=== PATIENT | female | born 1945 | race Caucasian/White ===

== ENCOUNTER 2016-12-04 22:07 | Emergency (ER) | payer MEDICARE, OTHER ==
[~2016-12-04] VITALS: Ht 167.6 cm; Wt 82.7 kg
[~2016-12-04 22:07] MED LIST: LIT300 PO; LORA-302 PO; RISP2TAB21 PO; TRAZ-115 PO
[2016-12-04 22:10] VITALS: BP 163/88; PULSE 70; RESP 15; O2SAT 98
--- NOTE | 2016-12-04 23:20 | ED.REPORT ---
HPI-General Illness Date of Service December 04, 2016 ED Provider: Wai Sadler MD A 71 year old female with a history of bipolar disorder, hypertension, chronic diarrhea due to medications and lithium toxicity presents to the ED complaining of a headache. The pt has been experiencing this headache for three days, in addition to nausea, decreased water intake and inability to sleep for the last three nights. She is concerned that she is dehydrated and may have lithium toxicity. The pt has been taking her medications regularly. Nursing Notes Stated Complaint: DEHYDRATION Chief Complaint: Headache Nursing Notes Reviewed: Yes Allergies: Coded Allergies: Penicillins (Verified Allergy, Severe, 10/03/15) nitrofurantoin (Verified Allergy, Severe, 10/03/15) tetracycline (Verified Allergy, Severe, 10/03/15) hydroxyzine (Verified Allergy, Intermediate, make me manic, 10/03/15) olanzapine (Verified Allergy, Unknown, 10/03/15) quetiapine (Verified Adverse Reaction, Unknown, seizures, 10/03/15) Scheduled [place] Carbonate ([place] Carbonate) 300 Mg Cap 300 MG PO BID Lorazepam (Ativan) 0.5 Mg Tablet 0.5 MG PO HS Risperidone (Risperdal) 2 Mg Tablet 1 MG PO BID Trazodone (Trazodone) 50 Mg Tablet 25 MG PO HS General Time Seen by MD: 22:16 Chief Complaint Headache Hx Obtained From: Patient Arrived By: Walk-in Sudden in Onset?: No Onset Occurred: 3 days ago Symptom Duration: Since onset Recent Healthcare: No recent hospitalization, Recent doctor visit Similar Sx Previous: Yes Past Medical History Past Medical History Notes: PCP: Dr. Rosario Past Medical History Bipolar 1 disorder, Manic with psychosis. Elevated body mass index Left bundle branch block. Possible seizure disorder. Chronic diarrhea due to medications. [place] toxicity. Reports: Asthma, Hyperlipidemia, Hypertension Past Surgical History ankle surgery Smoking History Never Smoker Social History Alcohol Use: "Social" Drug Use: Denies drug use Other Social History: Frequent ED visitor, , Local resident Ambulatory Status Independent Review of Systems decreased water intake insomnia Full Review of Systems Respiratory: Denies: Non-productive cough, Shortness of breath GI: Reports: Diarrhea (chronic), Nausea Skin: Denies Rash Neurologic: Reports: Headache Complete sys rev & neg: except as marked. Physical Exam Vital Signs Vital Signs Date Time Temp Pulse Resp B/P Pulse Ox O2 Delivery O2 Flow Rate FiO2 12/04/16 22:10 36.2 70 15 163/88 98 Room Air Initial VS: Reviewed, Vital signs normal General/Constitutional: Awake, Alert appears slightly dehydrated Head / Eyes: Atraumatic, Normocephalic, PERRL, EOMI ENT: Atraumatic, Airway patent Neck: Atraumatic, Supple, Full range of motion Respiratory / Chest: Atraumatic, Breath sounds NL, Breath sounds = bilat, No respiratory distress Cardiovascular: Heart rate NL, Regular rhythm, Heart sounds NL Abdomen: Atraumatic, Soft, Non-tender Back: Atraumatic, Full range of motion Upper Extremities Upper Extremity / MS: Atraumatic, Full range of motion Lower Extremity / Pelvis / MS: Atraumatic, Full range of motion Skin: Atraumatic, Color NL, No rash, Warm, Dry Neurologic: Oriented X3, Speech NL, No motor deficits, No sensory deficits Psychiatric: Affect NL, Mood NL Interpretation & Diagnostics Lab Results Interpretation Result Diagram: 12/04/16 2345 12/04/16 2345 Test 12/04/16 23:45 12/04/16 23:50 12/05/16 00:50 White Blood Count 9.8th/mm3 (3.8-10.1) Red Blood Count 3.83mil/mm3 (3.90-5.20) Hemoglobin 11.7g/dL (12.0-15.6) Hematocrit 36.7% (35.0-46.0) Mean Corpuscular Volume 95.8fL (81-100) Mean Corpuscular Hemoglobin 30.5pg (27.0-35.0) Mean Corpuscular Hemoglobin Concent 31.9% (32.0-37.0) Red Cell Distribution Width 12.9% (12.3-15.4) Platelet Count 275bil/L (150-400) Neutrophils (%) (Auto) 74.2% (40-74) Lymphocytes (%) (Auto) 17.0% (14-46) Monocytes (%) (Auto) 6.8% (4-12) Eosinophils (%) (Auto) 1.2% (0-5) Basophils (%) (Auto) 0.6% (0-3) Sodium Level 137mEq/L (134-144) Potassium Level 4.7mEq/L (3.5-5.2) Chloride Level 100mEq/L (97-108) Carbon Dioxide Level 22mmol/L (18-29) Blood Urea Nitrogen 21mg/dL (8-27) Creatinine 0.81mg/dL (0.57-1.00) Estimat Glomerular Filtration Rate 100mL/min (>59) Glucose Level 105mg/dL (60-99) Calcium Level 9.2mg/dL (8.5-10.1) Magnesium Level 1.9mg/dL (1.6-2.6) Total Bilirubin 0.4mg/dL (0.0-1.2) Aspartate Amino Transf (AST/SGOT) 15U/L (0-50) Alanine Aminotransferase (ALT/SGPT) 8U/L (0-32) Alkaline Phosphatase 59U/L (25-165) Total Protein 6.3g/dL (6.4-8.4) Albumin 4.1g/dL (3.4-5.0) Lipase 20U/L (13-60) Hold Love Top Tube Received (Received) [place] Level 0.9mEq/L (0.5-1.5) Hold Urine Received (Received) Urine Color Straw (YELLOW) Urine Appearance Clear (CLEAR,HAZY) Urine pH 7.0 (5.0-8.0) Urine Specific [place] 1.010 (1.003-1.035) Urine Protein Negativemg/dL (NEG,TRACE) Urine Glucose (UA) Negativemg/dL (NEGATIVE) Urine Ketones Negativemg/dL (NEGATIVE) Urine Occult Blood Negative (NEGATIVE) Urine Nitrite Negative (NEGATIVE) Urine Bilirubin Negative (NEGATIVE) Urine Urobilinogen Normalmg/dL (NORMAL) Urine Leukocyte Esterase Trace (NEGATIVE) Urine RBC 0-2/hpf (0-2) Urine WBC 0-5/hpf (0-5) Urine Epithelial Cells Occasional/hpf (NONE-MOD) Urine Crystals None seen (NONE SEEN) Urine Bacteria None/hpf (NONE-FEW) Urine Hyaline Casts None/lpf (NONE) Urine Granular Casts None seen (NONE SEEN) Urine Waxy Casts None seen (NONE SEEN) Urine Red Blood Cell Casts None seen (NONE SEEN) Urine White Blood Cell Casts None seen (NONE SEEN) Urine Mucus None seen (None Seen) Urine Trichomonas None seen (NONE SEEN) Urine Yeast None (NONE SEEN) Urinalysis Comment None Urine Culture Reflexed Indicated Re-Eval/Medical Decision Med Decision/Clinical Course 71-year-old female with a history of bipolar illness presents with manic symptoms. She has multiple wide ranging complaints. She is concerned that she is dehydrated and that she might be lithium toxic. Her lithium level is normal and her labs are normal. She is hydrated with a liter of saline with improvement. Her headache resolved without specific treatment. She is taking her education's as prescribed. She does not meet any criteria for snf. Source of Hx: Old records Time of Eval: 01:45 Patient Status: Condition improved Re-Evaluation/Progress Note: Pt rechecked, who is feeling significantly better. The diagnosis and plan for discharge are discussed. The pt understands and agrees with the plan. All questions are addressed at this time. Counseled Regarding: Diagnosis, Lab results, Need for follow-up, When/why to return to ED Discharge & Departure Primary Impression: Hypomania Disposition: Home Discharge Condition All VS Reviewed: Yes Condition: Stable Patient Instructions: Bipolar Disorder (ED) Additional Instructions: Your labs including lithium level are all normal. Get your Ativan prescription filled later today as planned. Return to the emergency room if you have significant worsening. Referrals: Kt Rosario MD (PCP) Scribe Attestation Portions of this note were transcribed by Fabián Talley. I, Dr. Sadler personally performed the history, physical exam and medical decision-making; I reviewed and confirmed the accuracy of the information in the transcribed note. Signed by: Filiberto Goldsmith, 12/05/16 and 0225. copies to: Kt Rosario MD, Howard L MD December 04, 2016 23:20 FABIÁN TALLEY December 04, 2016 23:29
[2016-12-04] MEDS ORDERED: 0.9% Sodium Chloride 1,000 ML IV ONE (23:22)
[2016-12-04] MEDS ORDERED: Ondansetron 2 mg/mL 2 mL Inj IVPUSH PRN (23:25)
[2016-12-04 23:58] LABS: BASOPHILS % (AUTO) 0.6 % (0-3); EOSINOPHILS % (AUTO) 1.2 % (0-5); MONOCYTES % (AUTO) 6.8 % (4-12); Mean Corpuscular Hemoglobin 30.5 pg (27.0-35.0); Mean Corpuscular Volume 95.8 fL (81-100); NEUTROPHILS % (AUTO) 74.2 % (40-74); Platelet Count 275 bil/L (150-400)
[2016-12-05 00:28] LABS: Magnesium 1.9 mg/dL (1.6-2.6)
[2016-12-05 00:59] LABS: APPEARANCE,URINE CLEAR (CLEAR,HAZY); COLOR,URINE STRAW (YELLOW); OCCULT BLOOD,URINE NEGATIVE (NEGATIVE); UROBILINOGEN,URINE NORMAL (NORMAL)
== END 2016-12-05 02:26 | disposition home or self-care (01) ==
LOC: SED 22:07
DX: F31.0 Bipolar disorder, current episode hypomanic (principal); R11.0 Nausea; I10 Essential (primary) hypertension; J45.909 Unspecified asthma, uncomplicated; E78.5 Hyperlipidemia, unspecified; Z88.0 Allergy status to penicillin; Z88.1 Allergy status to other antibiotic agents; Z88.8 Allergy status to other drugs, medicaments and biological substances
CPT/HCPCS: 36415; 80053; 80178; 81000; 83690; 83735; 85025; 87086; 87088; 96361; 96374; 96375; 99285; J2060; J2405; J7030

== ENCOUNTER 2016-12-06 23:38 | Emergency (ER) | payer MEDICARE, OTHER ==
[~2016-12-06] VITALS: Ht 167.6 cm; Wt 84.1 kg
[2016-12-06 23:48] VITALS: BP 148/78; PULSE 83; RESP 18; O2SAT 99
--- NOTE | 2016-12-07 00:19 | ED.REPORT ---
HPI-General Illness Date of Service Dec 07, 2016 ED Provider: Dr. Sadler 71 y/o female with a hx of bipolar disorder, PTSD, depression and anxiety presents to the ED complaining of headache and insomnia, onset yesterday. She also reports hypertension. The pt states she was taken off her 50mg Trazodone "because I was sleeping too much." Nursing Notes Stated Complaint: HIGH BLOOD PRESSURE Chief Complaint: General Complaint Nursing Notes Reviewed: Yes Allergies: Coded Allergies: nitrofurantoin (Verified Allergy, Severe, 10/03/15) tetracycline (Verified Allergy, Severe, 10/03/15) hydroxyzine (Verified Allergy, Intermediate, make me manic, 10/03/15) aripiprazole (Unverified Allergy, Unknown, 12/06/16) olanzapine (Verified Allergy, Unknown, 10/03/15) quetiapine (Verified Adverse Reaction, Unknown, seizures, 10/03/15) Scheduled [place] Carbonate (G[place] Carbonate) 300 Mg Cap 300 MG PO BID Lorazepam (Ativan) 0.5 Mg Tablet 0.5 MG PO HS Risperidone (Risperdal) 2 Mg Tablet 1 MG PO BID Trazodone (Trazodone) 50 Mg Tablet 25 MG PO HS Trazodone (Trazodone) 50 Mg Tablet 25-50 MG PO HS General Time Seen by MD: 00:18 Chief Complaint Other (Insomnia) Hx Obtained From: Patient Arrived By: Walk-in Sudden in Onset?: No Onset Occurred: Yesterday Symptom Duration: Since onset Location: : Head Quality: Painful Severity: Current: Mild Severity: Maximum: Mild Recent Healthcare: Recent doctor visit Similar Sx Previous: No Past Medical History Past Medical History Notes: PCP: Dr. Rosario Past Medical History Bipolar 1 disorder, Manic with psychosis. Elevated body mass index Left bundle branch block. Possible seizure disorder. Chronic diarrhea due to medications. [place] toxicity. Reports: Asthma, Hyperlipidemia, Hypertension Past Surgical History ankle surgery Smoking History Never Smoker Social History Alcohol Use: "Social" Drug Use: Denies drug use Other Social History: Frequent ED visitor, , Local resident Ambulatory Status Independent Review of Systems Reports: Insomnia Full Review of Systems Neurologic: Reports: Headache Complete sys rev & neg: except as marked. Physical Exam Vital Signs Vital Signs Date Time Temp Pulse Resp B/P Pulse Ox O2 Delivery O2 Flow Rate FiO2 12/07/16 01:15 36.1 63 18 166/92 99 Room Air 12/06/16 23:48 36.6 83 18 148/78 99 Room Air Initial VS: Reviewed, Vital signs normal Neck: Full range of motion Extremities: Vascular intact, Neuro intact, No swelling, No tenderness Skin: Warm, Dry, No cyanosis Neurologic: Alert, Oriented, Nonfocal General/Constitutional: Awake, Alert, No acute distress, Cooperative Pressured speech Respiratory / Chest: Atraumatic, Breath sounds NL, Breath sounds = bilat, No respiratory distress, No rales, No rhonchi, No wheezing Cardiovascular: Heart rate NL, Regular rhythm, Heart sounds NL, No gallop, No murmurs, No rubs Back: Atraumatic, Full range of motion Psychiatric: Affect NL, Mood NL, Not suicidal, Not homicidal, No hallucinations , Thought content NL Re-Eval/Medical Decision Med Decision/Clinical Course 71-year-old female with a history of bipolar illness presents with insomnia. She was seen 2 nights ago in the emergency room with similar complaints. At that time she was out of her prescribed Ativan. She has subsequent had it refilled, but still cannot sleep well. She is taking her other medications. She requested trazodone. I gave her trazodone 50 mg now and then a prescription for 50 mg, 1/2-1 tablet at bedtime as needed for sleep, #15. She will follow-up with Dr. Minor for further evaluation and treatment. Time of Eval: 00:25 Patient Status: Mild relief Re-Evaluation/Progress Note: Discussed diagnosis. Informed the pt of the plan to discharge. Pt understands and agrees with plan. F/U instructions and RTER warning given. All questions addressed. Counseled Regarding: Diagnosis, Need for follow-up, When/why to return to ED Discharge & Departure Primary Impression: Insomnia due to mental condition Disposition: Home Discharge Condition All VS Reviewed: Yes Condition: Improved Patient Instructions: Insomnia (ED) Additional Instructions: I would recommend trazodone 50 mg, 1/2-1 tablet at bedtime as needed for insomnia for a few days. Talked to Dr. Rocha when you see her about continuing this medication or an alternative. Referrals: Kt Rosario MD (PCP) Scribe Attestation Portions of this note were transcribed by Lane Gregory. I, , personally performed the history, physical exam and medical decision-making;I reviewed and confirmed the accuracy of the information in the transcribed note. Signed by Filiberto Menchaca. 12/07/16 01:38 copies to: Kt Rosario MD, Wai Mancia MD Dec 07, 2016 00:19 [address] Gregory Dec 07, 2016 00:38
[2016-12-07] MEDS ORDERED: TRAZ-115 PO (00:42)
[2016-12-07 01:15] VITALS: BP 166/92; PULSE 63; RESP 18; O2SAT 99
== END 2016-12-07 01:16 | disposition home or self-care (01) ==
LOC: SED 23:38
DX: G47.01 Insomnia due to medical condition (principal); I10 Essential (primary) hypertension; F31.9 Bipolar disorder, unspecified; F43.10 Post-traumatic stress disorder, unspecified; F41.9 Anxiety disorder, unspecified; F32.9 Major depressive disorder, single episode, unspecified; J45.909 Unspecified asthma, uncomplicated; E78.5 Hyperlipidemia, unspecified; Z88.8 Allergy status to other drugs, medicaments and biological substances